=== PATIENT | female | born 1935 | race Caucasian/White ===

== ENCOUNTER 2021-07-12 13:42 | Inpatient (IN) | payer OTHER ==
[~2021-07-12] VITALS: Ht 160 cm; Wt 78.9 kg
--- NOTE | 2021-07-12 13:47 | NUR ---
SON CALLED ALONA PERRY [phone] HX: WENT VP FOR TIA FIRST THEN 3 DAYS LATER CVA SLURRING SPEECH 3 WEEKS AGO. HTN WITH MEDS PCP CHANGED
--- NOTE | 2021-07-12 13:50 | NUR ---
BIBRA 39 FRM ASSISTED LIVING C/O WITNESSED SYNCOPE x 3MIN, NO HEAD TRAUMA. PATIENT IS ALERT, ORIENTED X3. PLACED COMFORTABLY IN BED. VITALS CHECKED.
--- NOTE | 2021-07-12 13:50 | NUR ---
PER EMT, PATIENT HAS PREVIOUS HISTORY OF STROKE FEW MONTHS AGO.
[2021-07-12] MEDS ORDERED: CHOL100043 PO (14:24)
[2021-07-12] MEDS ORDERED: VALS320T16 PO (14:24)
[2021-07-12] MEDS ORDERED: AMLO-213 PO (14:24)
[2021-07-12] MEDS ORDERED: IPRA42SP (14:24)
[2021-07-12] MEDS ORDERED: MAGN296S72 PO (14:24)
[2021-07-12] MEDS ORDERED: HYDR25TA4 PO (14:24)
[2021-07-12] MEDS ORDERED: ASPI-1169 PO (14:24)
[2021-07-12] MEDS ORDERED: CLOP75TA15 PO (14:24)
[2021-07-12] MEDS ORDERED: ATOR40TA PO (14:24)
[2021-07-12 14:42] LABS: BASOPHILS % (AUTO) 0.4 % (0.0-2.0); EOSINOPHILS % (AUTO) 0.8 % (0.0-6.0); HEMATOCRIT 42 % (33-45); HEMOGLOBIN 13.6 g/dL (11.5-14.8); LYMPHOCYTES # (AUTO) 0.6 K/uL (0.8-4.8); LYMPHOCYTES % (AUTO) 4.8 % (20.0-44.0); MEAN CORPUSCULAR HGB CONC 33 g/dl (31.0-36.0); MEAN CORPUSCULAR VOLUME 91 fL (82-100); MONOCYTES # (AUTO) 0.6 K/uL (0.1-1.30); MONOCYTES % (AUTO) 4.8 % (2.0-12.0); NEUTROPHILS # (AUTO) 10.5 K/uL (1.8-8.9); NEUTROPHILS % (AUTO) 89.2 % (43.0-81.0); PLATELET COUNT (AUTO) 271 K/uL (150-450); RED BLOOD CELL COUNT(AUTO) 4.63 MIL/uL (4.0-5.2); WHITE BLOOD COUNT (AUTO) 11.7 K/uL (4.3-11.0)
--- NOTE | 2021-07-12 14:42 | NUR ---
MOVE SHEET SUBMITTED AND CALLED FOR TELE BED.
--- NOTE | 2021-07-12 14:57 | NUR ---
PATIENT BROUGHT TO RAD DEPT FOR CT SCAN
[2021-07-12 15:00] LABS: CALCIUM, SERUM 9.6 mg/dL (8.5-10.1); CARBON DIOXIDE 24 mmol/L (21-32); CHLORIDE 102 mmol/L (98-107); CREATININE 1.8 mg/dL (0.6-1.3); GLUCOSE 144 mg/dL (74-106); POTASSIUM 3.8 mmol/L (3.5-5.1); SODIUM SERUM 140 mmol/L (136-145); UREA NITROGEN, BLOOD 25 mg/dL (7-18)
[2021-07-12 15:13] LABS: ALANINE AMINOTRANSFERASE 23 U/L (12-78); ALBUMIN 3.1 g/dL (3.4-5.0); ALKALINE PHOSPHATASE 82 U/L (46-116); ASPARTATE AMINOTRANSFERASE 22 U/L (15-37); BILIRUBIN,DIRECT 0.2 mg/dL (0.0-0.2); BILIRUBIN,TOTAL 0.6 mg/dL (0.2-1.0); TOTAL PROTEIN, SERUM 7.9 g/dL (6.4-8.2)
--- NOTE | 2021-07-12 15:13 | NUR ---
COVID ANTIGEN SWAB DONE AND SENT TO LAB
[2021-07-12] MEDS ORDERED: MAGNESIUM CITRATE 296 ML BOTTLE PO PRN (16:00)
[2021-07-12] MEDS ORDERED: IV NS 0.9% 1,000 ML IV ONE (16:00)
[2021-07-12] MEDS ORDERED: ASPIRIN 81 MG TAB.CHEW PO ONE (16:30)
[2021-07-12] MEDS ORDERED: IV NS 0.9% 1,000 ML BAG IV ONE (16:30)
--- NOTE | 2021-07-12 16:37 | NUR ---
IV FLUIDS STARTED
[2021-07-12] MEDS ORDERED: ENOXAPARIN SODIUM 30 MG/0.3 ML DISP.SYRIN ONE (16:42)
[2021-07-12] MEDS ORDERED: ASPIRIN 81 MG TAB.CHEW ONE (16:42)
[2021-07-12] MEDS: ENOXAPARIN SODIUM 30 MG/0.3 ML DISP.SYRIN SQ SCH (16:51)
[2021-07-12] MEDS: BLOOD SUGAR DIAGNOSTIC 1 EACH STRIP IN SCH ×3 (17:46→22:25)
--- NOTE | 2021-07-12 18:10 | NUR ---
URINE SPECIMEN SENT TO LAB
--- NOTE | 2021-07-12 18:15 | NUR ---
2DECHO AT BEDSIDE
--- NOTE | 2021-07-12 18:51 | NUR ---
GOT BED 323-2 > CHANGE OF SHIFT.
[2021-07-12 19:11] LABS: BILIRUBIN,URINE SMALL (NEGATIVE); COLOR,URINE YELLOW (YELLOW); LEUKOCYTE ESTERASE ,URINE LARGE (NEGATIVE); NITRITE, URINE NEGATIVE (NEGATIVE); PROTEIN,URINE 100 mg/dl (NEGATIVE); UGLUCOSE NEGATIVE (NEGATIVE)
[2021-07-12 19:40] LABS: BACTERIA,URINE 3+ /HPF (None Seen); RBC,URINE 21-50 /HPF (0-2); WBC,URINE 51-80 /HPF (0-3)
[2021-07-12 19:41] LABS: SQUAMOUS EPITHELIAL CELL,UR 0-2 /HPF (None Seen)
--- NOTE | 2021-07-12 20:38 | NUR ---
REPORT GIVEN TO KRISTINA YOST
--- NOTE | 2021-07-12 21:30 | NUR ---
TRANSFERRED PATIENT TO ROOM VIA STRETCHER.
[2021-07-12 21:45] VITALS: BP 154/74
--- NOTE | 2021-07-12 22:00 | NUR ---
TRACK SUPERINTENDENTMANAGER FIELD NOTE PATIENT BROUGHT IN VIA STRETCHER, ALERT/ORIENTED X 2, CONFUSED, ORIENTED PATIENT TO HOSPITAL NAME AND DATE/TIME. PATIENT STABLE ON RA, NO S/S OF DISTRESS OR SOB NOTED, BREATHING EVEN AND UNLABORED. PER SON ALONA, PATIENT IS FULLY VACCINATED FOR COVID INCLUDING BOOSTER BUT UNSURE OF THE GREIGE GOODS INSPECTOR OR DATES RECEIVED. PATIENT ON EXTERNAL SPORTS MEDICINE TRAINER READING SINUS RHYTHM, HR: 74. LEFT AC #20G IV ACCESS INTACT AND FLUSHING WELL. PER PATIENT SHE DOES NOT HAVE DENTURES OR PACEMAKER. PER PATIENT SHE IS NORMALLY AMBULATORY, DOESN'T USE WALKER OR WHEELCHAIR. PATIENT BELONGINGS CHARTED AND BELONGING LIST PLACED IN CHART. PATIENT SKIN INTACT, HAS SCATTERED BRUISES ON BODY. SAFETY MEASURES IN PLACE: CALL LIGHT WITHIN REACH, SIDE RAILS UP X 3, BED LOCKED IN LOWEST POSITION, HOB ELEVATED, BED ALARM ON. WILL CONTINUE TO MONITOR PATIENT
--- NOTE | 2021-07-13 00:02 | NUR ---
INSURANCE VERIFY REP NOTE 2 DIFFERENT ACCU CHECK ORDERS. MIDNIGHT Q6H ACCU CHECK NOT TAKEN BECAUSE PARAMETERS STATE IF NPO, PATIENT IS NOT NPO. BLOOD SUGAR TAKEN AT 2200 WAS 101
--- NOTE | 2021-07-13 00:08 | NUR ---
LOAN SUPERVISOR NOTE ADMITTING DIAGNOSIS CLARIFIED WITH DR. JULIANNA RODRIGUEZ. ORDER TO ADMIT TO TELE, DIAGNOSIS SYNCOPE. ORDER CARRIED OUT
[2021-07-13 00:33] VITALS: BP 128/54
[2021-07-13 04:38] VITALS: BP 119/70
[2021-07-13] MEDS: BLOOD SUGAR DIAGNOSTIC 1 EACH STRIP IN SCH ×8 (05:19→22:06)
--- NOTE | 2021-07-13 07:14 | NUR ---
LOOPER FIXER CLOSING NOTE PATIENT SLEEPING IN BED, ALERT/ORIENTED X 2, PT CONFUSED AT TIMES. PT STABLE ON RA, NO S/S OF DISTRESS OR SOB NOTED, BREATHING EVEN AND UNLABORED. PATIENT ON EXTERNAL PIECE GOODS PACKER READING SINUS RHYTHM, HR: 63. NO SIGNIFICANT CHANGES THROUGHOUT SHIFT, PATIENT SLEPT WELL THROUGHOUT THE NIGHT. LEFT AC #20G IV ACCESS INTACT AND SALINE LOCKED. SAFETY MEASURES IN PLACE: CALL LIGHT WITHIN REACH, SIDE RAILS UP X 3, BED LOCKED IN LOWEST POSITION, HOB ELEVATED, BED ALARM ON. WILL ENDORSE TO DAY SHIFT NURSE FOR CONTINUITY OF CARE
--- NOTE | 2021-07-13 07:56 | NUR ---
BALANCE CLERK OPENING NOTE PATIENT SLEEPING IN BED, AWAKEN EASILY, ALERT/ORIENTED X 2. PT STABLE ON RA, NO S/SX OF DISTRESS OR SOB NOTED, BREATHING EVEN AND UNLABORED. PATIENT ON EXTERNAL CHANGE ANALYST READING SINUS RHYTHM, HR: 61. IV ACCESS ON LAC #20G PRESENT AND INTACT; SL. SAFETY PRECAUTIONS IN PLACE: CALL LIGHT WITHIN REACH, SIDE RAILS UP X 3, BED LOCKED IN LOWEST POSITION, HOB ELEVATED, BED ALARM ON. WILL CONTINUE TO MONITOR PATIENT.
[2021-07-13 08:00] VITALS: BP 129/60
[2021-07-13] MEDS ORDERED: AMLODIPINE BESYLATE 10 MG TABLET PO SCH (09:00)
[2021-07-13] MEDS: ASPIRIN 81 MG TAB.CHEW PO SCH (09:05)
[2021-07-13] MEDS: ATORVASTATIN 40 MG TABLET PO SCH (09:05)
[2021-07-13] MEDS: CLOPIDOGREL BISULFATE 75 MG TABLET PO SCH (09:05)
[2021-07-13] MEDS: CEFTRIAXONE 1 G in IV D5W 50 ML IV SCH (09:28)
[2021-07-13] MEDS ORDERED: IV NS 0.9% 1,000 ML IV PRN (10:30)
[2021-07-13 12:00] VITALS: BP 139/68
[2021-07-13 16:00] VITALS: BP 136/62
[2021-07-13] MEDS: ENOXAPARIN SODIUM 30 MG/0.3 ML DISP.SYRIN SQ SCH (17:13)
--- NOTE | 2021-07-13 18:51 | NUR ---
WAREHOUSE TECHNICIAN CLOSING NOTES PATIENT RESTING IN BED, ALERT/ORIENTED X 2. PT STABLE ON RA, NO S/SX OF DISTRESS OR SOB NOTED, BREATHING EVEN AND UNLABORED. PATIENT ON EXTERNAL ALLERGIST/IMMUNOLOGIST PHYSICIAN READING SINUS RHYTHM. IV ACCESS ON RFA AND BALBINA MIDLINE G # 20 PRESENT AND INTACT; SL. ALL NEEDS ATTENDED DURING THE DAY. SAFETY PRECAUTIONS IN PLACE: CALL LIGHT WITHIN REACH, SIDE RAILS UP X 3, BED LOCKED IN LOWEST POSITION, HOB ELEVATED, BED ALARM ON. ENDORSE TO NAIL MACHINE OPERATOR NURSE FOR CHAR.
--- NOTE | 2021-07-13 19:30 | NUR ---
SEMICONDUCTOR PROCESSING TECHNICIAN OPENING NOTE RECEIVED PATIENT IN BED, A/OX2. PATIENT NOT TALKING, ONLY NODS. PERRLA NOTED. NO S/S OF APPARENT DISTRESS. DENIES PAIN. TELE MONITOR READING SR 69 AT THIS TIME. Erika. MIRIAM #20 G RUNNING NS @100CC/HR. SAFETY IN PLACE. WILL CONTINUE WITH PATIENT'S PLAN OF CARE AND MONITOR.
[2021-07-13 20:00] VITALS: BP 133/64
--- NOTE | 2021-07-13 21:00 | NUR ---
BARMAN NOTE SPOKE WITH ALONA (SON) ASKING FOR UPDATES. PER ALONA HE WANTS TO SPEAK TO NEUROLOGIST. ALONA'S NUMBER . WILL RELAY MESSAGE TO AM SHIFT AND CHARGE NURSE.
--- NOTE | 2021-07-14 04:00 | NUR ---
BRIAR CUTTER NOTE-- ORTHOSTATIC BP LYING DOWN - 168/71, HR-73 SITTING DOWN- 162/65, HR-70 STANDING UP- 173/81, HR-58 PATIENT DENIES ANY DIZZINESS OR SYNCOPE. WILL RECHECK BP AFTER 30 MINUTES.
[2021-07-14 04:30] VITALS: BP 151/76
--- NOTE | 2021-07-14 04:32 | NUR ---
JAVA JSF DEVELOPER NOTE BP 151/76, HR-76. WILL CONTINUE TO MONITOR PATIENT.
[2021-07-14 06:27] LABS: BASOPHILS # (AUTO) 0.1 K/uL (0.0-0.2); BASOPHILS % (AUTO) 1.2 % (0.0-2.0); EOSINOPHILS % (AUTO) 7.3 % (0.0-6.0); HEMATOCRIT 38 % (33-45); HEMOGLOBIN 12.3 g/dL (11.5-14.8); LYMPHOCYTES # (AUTO) 0.7 K/uL (0.8-4.8); LYMPHOCYTES % (AUTO) 13.3 % (20.0-44.0); MEAN CORPUSCULAR HGB CONC 33 g/dl (31.0-36.0); MEAN CORPUSCULAR VOLUME 91 fL (82-100); MONOCYTES # (AUTO) 0.5 K/uL (0.1-1.30); MONOCYTES % (AUTO) 9.6 % (2.0-12.0); NEUTROPHILS # (AUTO) 3.7 K/uL (1.8-8.9); NEUTROPHILS % (AUTO) 68.6 % (43.0-81.0); PLATELET COUNT (AUTO) 205 K/uL (150-450); RED BLOOD CELL COUNT(AUTO) 4.16 MIL/uL (4.0-5.2); WHITE BLOOD COUNT (AUTO) 5.4 K/uL (4.3-11.0)
[2021-07-14] MEDS: BLOOD SUGAR DIAGNOSTIC 1 EACH STRIP IN SCH ×4 (06:37→22:11)
--- NOTE | 2021-07-14 06:47 | NUR ---
MASS SPEC CLOSING NOTE PATIENT IN BED WITH EYES CLOSED, EASY TO AROUSE. A/OX2. NO S/S OF APPARENT DISTRESS IN ROOM AIR. DENIES ANY PAIN. TELE MONITOR READING SR THROUGHOUT SHIFT, 64 BPM. IV NS RUNNING AT 100ML/HR. ALL NEEDS ATTENED. ALL SCHEDULED MEDS ADMINISTERED. NIHSS SCORE=4 ON MY SHIFT. WILL ENDORSE TO MORNING SHIFT RN FOR CONTINUITY OF CARE.
[2021-07-14 07:10] LABS: ALBUMIN 2.5 g/dL (3.4-5.0); BILIRUBIN,TOTAL 0.3 mg/dL (0.2-1.0); CALCIUM, SERUM 8.7 mg/dL (8.5-10.1); CREATININE 1.1 mg/dL (0.6-1.3); PHOSPHORUS 3.4 mg/dL (2.5-4.9); POTASSIUM 3.7 mmol/L (3.5-5.1); TOTAL PROTEIN, SERUM 6.8 g/dL (6.4-8.2)
--- NOTE | 2021-07-14 07:31 | NUR ---
CHIEF OF STAFF DOCTOR OPENING NOTE PATIENT SLEEPING IN BED, AWAKEN EASILY, ALERT/ORIENTED X 2. PT STABLE ON RA, NO S/SX OF DISTRESS OR SOB NOTED, BREATHING EVEN AND UNLABORED. PATIENT ON EXTERNAL DIRECTOR INSURANCE READING SINUS RHYTHM, HR: 64. BALBINA MIDLINE PRESENT AND INTACT RUNNING NS @100 MLS/HR. SAFETY PRECAUTIONS IN PLACE: CALL LIGHT WITHIN REACH, SIDE RAILS UP X 3, BED LOCKED IN LOWEST POSITION, HOB ELEVATED, BED ALARM ON. WILL CONTINUE TO MONITOR PATIENT.
[2021-07-14 08:00] VITALS: BP 156/60
[2021-07-14] MEDS: CEFTRIAXONE 1 G in IV D5W 50 ML IV SCH (08:28)
[2021-07-14] MEDS: ASPIRIN 81 MG TAB.CHEW PO SCH (08:28)
[2021-07-14] MEDS: CLOPIDOGREL BISULFATE 75 MG TABLET PO SCH (08:28)
[2021-07-14] MEDS: ATORVASTATIN 40 MG TABLET PO SCH (08:28)
[2021-07-14] MEDS ORDERED: IOHEXOL-350 100 ML VIAL IV ONE (08:57)
[2021-07-14] MEDS ORDERED: IV NS 0.9% 250 ML IV ONE (08:58)
[2021-07-14 16:00] VITALS: BP 156/60
[2021-07-14] MEDS: ENOXAPARIN SODIUM 30 MG/0.3 ML DISP.SYRIN SQ SCH (16:08)
--- NOTE | 2021-07-14 19:00 | NUR ---
ACID PURIFICATION EQUIPMENT OPERATOR CLOSING NOTES PATIENT RESTING IN BED, AWAKEN EASILY, ALERT/ORIENTED X 2. PT STABLE ON RA, NO S/SX OF DISTRESS OR SOB NOTED, BREATHING EVEN AND UNLABORED DURING THE DAY. PATIENT ON EXTERNAL UNIT MANAGER RN READING SINUS RHYTHM. BALBINA MIDLINE PRESENT AND INTACT RUNNING NS @100 MLS/HR. ALL NEEDS ATTENDED DURING THE DAY. SAFETY PRECAUTIONS IN PLACE: CALL LIGHT WITHIN REACH, SIDE RAILS UP X 3, BED LOCKED IN LOWEST POSITION, HOB ELEVATED, BED ALARM ON. WILL ENDORSE TO MECHANICAL CAD DRAFTER NURSE FOR CHAR.
--- NOTE | 2021-07-14 19:33 | NUR ---
BOX PRINTING MACHINE OPERATOR OPENING NOTE RECEIVED PATIENT IN BED, A/OX2. NO S/S OF APPARENT DISTRESS IN ROOM AIR. DENIES PAIN. TELE MONITOR READING SR 75. NO FLUIDS RUNNING AT THIS TIME. SAFETY IN PLACE. WILL CONTINUE TO MONITOR.
[2021-07-14 20:00] VITALS: BP 133/66
[2021-07-15] VITALS: BP 149/58
[2021-07-15 01:27] VITALS: BP 149/58
[2021-07-15 04:00] VITALS: BP 158/54
[2021-07-15] MEDS: BLOOD SUGAR DIAGNOSTIC 1 EACH STRIP IN SCH (06:32)
--- NOTE | 2021-07-15 06:45 | NUR ---
COGNOS REPORT DEVELOPER CLOSING NOTE PATIENT IN BED WITH EYES CLOSED, EASY TO AROUSE. A/OX2. NO S/S OF APPARENT DISTRESS IN ROOM AIR. DENIES ANY PAIN. TELE MONITOR READING SR THROUGHOUT SHIFT. NO IV FLUIDS RUNNING T THIS TIME. ALL NEEDS ATTENDED. ALL SCHEDULED MEDS ADMINISTERED. NIHSS SCORE=3 ON MY SHIFT. WILL ENDORSE TO MORNING SHIFT RN FOR CONTINUITY OF CARE.
--- NOTE | 2021-07-15 08:04 | NUR ---
RN OPENING NOTE PATIENT RECEIVED IN BED, ABLE TO RESPONDS ALL STIMULI. IN NO ACUTE DISTRESS NOTED. RESPIRATORY EVEN AND UNLABORED ON ROOM AIR. SKIN IS WARM TO TOUCH, KEEP CLEAN/DRY, INTACT IV SITE. KEPT ELEVATED HOB FOR ENSURE AIRWAY AND ASPIRATION PRECAUTION, ALSO LOWEST POSITION OF THE BED, S/R UP X 2, ALL SAFETY PRECAUTION APPLIED. CALL LIGHT WITHIN REACH, WILL CONTINUE TO MONITOR.
[2021-07-15] MEDS: CEFTRIAXONE 1 G in IV D5W 50 ML IV SCH (08:14)
[2021-07-15] MEDS: ATORVASTATIN 40 MG TABLET PO SCH (08:14)
[2021-07-15] MEDS: CLOPIDOGREL BISULFATE 75 MG TABLET PO SCH (08:14)
[2021-07-15] MEDS: ASPIRIN 81 MG TAB.CHEW PO SCH (08:15)
[2021-07-15] MEDS ORDERED: CEPH250S PO (10:50)
--- NOTE | 2021-07-15 11:30 | NUR ---
PATIENT DISCHARGE TO [facility], SON PICKED UP PATIENT WHO AWARE OF PATIENT DISCHARGE TO [facility]. GIVEN INFORMATION OF NEW MEDICATION, AND FOLLOW UP DR. BOLANOS/VASCULAR SURGEON, INCLUDED ALL IMAGINE CDs ALSO.
== END 2021-07-15 11:30 | DRG 64 ==
LOC: ER 13:50 → TRANSITION 16:27 → TELE 19:22
PROVIDERS: ADMIT Internal Medicine; ATTEND Internal Medicine
PROC: 05HC33Z Insertion of Infusion Device into Left Basilic Vein, Percutaneous Approach (ICD-10-PCS; principal; 2021-07-13)
DX: I63.9 Cerebral infarction, unspecified (principal); G93.41 Metabolic encephalopathy; E43 Unspecified severe protein-calorie malnutrition; N17.0 Acute kidney failure with tubular necrosis; N39.0 Urinary tract infection, site not specified; I10 Essential (primary) hypertension; G93.89 Other specified disorders of brain; Z86.73 Personal history of transient ischemic attack (TIA), and cerebral infarction without residual deficits; F03.90 Unspecified dementia, unspecified severity, without behavioral disturbance, psychotic disturbance, mood disturbance, and anxiety; J44.9 Chronic obstructive pulmonary disease, unspecified; E87.5 Hyperkalemia; Z88.5 Allergy status to narcotic agent; Z79.51 Long term (current) use of inhaled steroids; Z79.82 Long term (current) use of aspirin; Z79.899 Other long term (current) drug therapy; E88.09 Other disorders of plasma-protein metabolism, not elsewhere classified; I67.2 Cerebral atherosclerosis; I73.9 Peripheral vascular disease, unspecified; N28.89 Other specified disorders of kidney and ureter; B96.20 Unspecified Escherichia coli [E. coli] as the cause of diseases classified elsewhere; E86.0 Dehydration
CPT/HCPCS: 36410; 36415; 70450-TC; 70496-TC; 70498-TC; 70551-TC; 71045-TC; 76770-TC; 80048-TC; 80053-TC; 80076-TC; 81001; 82962-TC; 83605-TC; 83735-TC; 84100-TC; 84484-TC; 85025-TC; 87040-TC; 87081-TC; 87086-TC; 87186-TC; 92526; 92611-TC; 93307-TC; 93880-TC; 97112-TC; 97116-TC; 97530-TC; C9803; G0378; J0696; J1650; J7030; J7040; J7050; J7060; Q9967

== ENCOUNTER 2022-08-04 09:25 | Inpatient (IN) | payer OTHER ==
[~2022-08-04] VITALS: Ht 167.6 cm; Wt 81.6 kg
[~2022-08-04 09:25] MED LIST: AMLO-213 PO; ASPI-1169 PO; ATOR40TA PO; CEPH250S PO; CHOL100043 PO; CLOP75TA15 PO; HYDR25TA4 PO; IPRA42SP; MAGN296S72 PO; VALS320T16 PO
--- NOTE | 2022-08-04 09:50 | NUR ---
Patient AOx4 able to express her concerns. Patient states no pain. Discussed plan of car, pt verbalized agreement. All safety precautions taken.
--- NOTE | 2022-08-04 09:55 | NUR ---
MOVE SHEET SUBMITTED.
[2022-08-04] MEDS ORDERED: LEVETIRACETAM (500MG) 500 MG in IV NS 0.9% 100 ML IV ONE (10:00)
--- NOTE | 2022-08-04 10:00 | NUR ---
Blood collected, sent to lab
[2022-08-04 10:34] LABS: CARBON DIOXIDE 27 mmol/L (21-32); CHLORIDE 105 mmol/L (98-107); CREATININE 1.6 mg/dL (0.6-1.3); GLUCOSE 162 mg/dL (74-106); POTASSIUM 3.9 mmol/L (3.5-5.1); SODIUM SERUM 141 mmol/L (136-145); UREA NITROGEN, BLOOD 20 mg/dL (7-18)
[2022-08-04 10:39] LABS: ALANINE AMINOTRANSFERASE 31 U/L (12-78); ALBUMIN 2.9 g/dL (3.4-5.0); ALKALINE PHOSPHATASE 89 U/L (46-116); ASPARTATE AMINOTRANSFERASE 22 U/L (15-37); BILIRUBIN,TOTAL 0.4 mg/dL (0.2-1.0); TOTAL PROTEIN, SERUM 7.4 g/dL (6.4-8.2)
[2022-08-04 10:48] LABS: ALCOHOL, BLOOD < 3 mg/dL (0-0)
[2022-08-04 10:55] LABS: BASOPHILS # (AUTO) 0.1 K/uL (0.0-0.2); BASOPHILS % (AUTO) 0.7 % (0.0-2.0); EOSINOPHILS % (AUTO) 4.4 % (0.0-6.0); HEMATOCRIT 39 % (33-45); LYMPHOCYTES # (AUTO) 0.4 K/uL (0.8-4.8); LYMPHOCYTES % (AUTO) 4.7 % (20.0-44.0); MEAN CORPUSCULAR HGB CONC 33 g/dl (31.0-36.0); MEAN CORPUSCULAR VOLUME 88 fL (82-100); MONOCYTES # (AUTO) 0.5 K/uL (0.1-1.30); MONOCYTES % (AUTO) 6.6 % (2.0-12.0); NEUTROPHILS # (AUTO) 6.3 K/uL (1.8-8.9); NEUTROPHILS % (AUTO) 83.6 % (43.0-81.0); PLATELET COUNT (AUTO) 221 K/uL (150-450); RED BLOOD CELL COUNT(AUTO) 4.42 MIL/uL (4.0-5.2); WHITE BLOOD COUNT (AUTO) 7.5 K/uL (4.3-11.0)
--- NOTE | 2022-08-04 10:56 | NUR ---
ALBARO CM SCAN [phone]
--- NOTE | 2022-08-04 11:00 | NUR ---
DR. BROWN OR DR. FRANCOIS WILL CALL FOR PEER TO PEER.
[2022-08-04 11:45] LABS: BILIRUBIN,URINE NEGATIVE (NEGATIVE); COLOR,URINE DARK YELLOW (YELLOW); LEUKOCYTE ESTERASE ,URINE 1+ (NEGATIVE); NITRITE, URINE NEGATIVE (NEGATIVE); PROTEIN,URINE 3+ mg/dl (NEGATIVE); UGLUCOSE NEGATIVE (NEGATIVE); UROBILINOGEN,URINE 0.2 EU/dL (0.2)
[2022-08-04 11:57] LABS: BACTERIA,URINE Few /HPF (None Seen); RBC,URINE 0-2 /HPF (0-2); SQUAMOUS EPITHELIAL CELL,UR Rare /HPF (None Seen)
[2022-08-04] MEDS ORDERED: CEFTRIAXONE 1GM BAG (ER ONLY) 50 ML IV ONE (12:26)
[2022-08-04] MEDS ORDERED: CEFTRIAXONE 1GM BAG (ER ONLY) 1 GM/50 ML PIGGYBACK IV ONE (12:30)
--- NOTE | 2022-08-04 12:34 | NUR ---
DR. BROWN SPEAKING WITH DR. MCMULLEN.
--- NOTE | 2022-08-04 13:04 | NUR ---
MRSA Swab collected, sent to lab.
--- NOTE | 2022-08-04 13:05 | NUR ---
COVID Swab collected, sent to lab.
--- NOTE | 2022-08-04 14:09 | NUR ---
GOT BED 113-2 ADMITTING INFORMED.
[2022-08-04] MEDS ORDERED: ONDANSETRON HCL/PF 4 MG/2 ML VIAL IVP PRN (14:30)
[2022-08-04] MEDS ORDERED: ACETAMINOPHEN 325 MG TABLET PO PRN (14:30)
--- NOTE | 2022-08-04 14:45 | NUR ---
report given to olga lidia for continuation of care
--- NOTE | 2022-08-04 15:03 | NUR ---
COMMODITY BUYER NOTE PT ALERT AND ORIENTED X3. VERBALLY RESPONSIVE. SOME PERIODS OF CONFUSION. ON TELE MONITOR. ON 2-4 l NASAL CANNULA TOLERATING AT 97%. PT NOTED TO HAVE REDNESS ON UPPER CHEST AND WEARING A LIFE ALERT BRACELET. PT HAS LEFT AC IV INTACT, PATENT AND FLUSHING WELL. ALL SAFETY MEASURES IN PLACE.CALL LIGHT WITHIN REACH. BED LOCKED AT LWOEST POSITION. SIDE RAILS UP X2. BED ALARM ON
[2022-08-04] MEDS: CHOLECALCIFEROL 1,000 UNIT TABLET (VIT D3) PO SCH (16:54)
[2022-08-04] MEDS: ASPIRIN 81 MG TAB.CHEW PO SCH (16:55)
[2022-08-04] MEDS: AMLODIPINE BESYLATE 10 MG TABLET PO SCH (16:57)
[2022-08-04] MEDS: ATORVASTATIN 40 MG TABLET PO SCH (16:57)
[2022-08-04] MEDS: CLOPIDOGREL BISULFATE 75 MG TABLET PO SCH (16:58)
[2022-08-04 17:00] VITALS: BP 160/81
[2022-08-04] MEDS: ENOXAPARIN SODIUM 30 MG/0.3 ML DISP.SYRIN SQ SCH (17:00)
--- NOTE | 2022-08-04 17:30 | NUR ---
RN NOTE NOTIFIED GUSTAVO BRYANT IF LOVENOX AND PLAVIX CAN BE TAKEN TOGETHER. INFORMED NO RISKS OF BLEEDING AND CURRENT HGB,HCT AND PLT VALUES. GUSTAVO BRYANT SAID OKAY TO GIVE
[2022-08-04] MEDS: IV NS 0.9% 1,000 ML IV PRN (17:36)
--- NOTE | 2022-08-04 19:23 | NUR ---
RN CLOSING NOTE PT ALERT AND ORIENTED X3. VERBALLY RESPONSIVE. SOME PERIODS OF CONFUSION. ON TELE MONITOR AT SR 70. ON 3-4 l NASAL CANNULA TOLERATING AT 97%. PT NOTED TO HAVE REDNESS ON UPPER CHEST AND WEARING A LIFE ALERT BRACELET AND DISCOLORATION THROUGHOUT BODY. PT HAS LEFT AC IV INTACT, PATENT AND FLUSHING WELL. WOUND CARE PICTURES DONE AND PLACED IN CHART. ALL SAFETY MEASURES IN PLACE.CALL LIGHT WITHIN REACH. BED LOCKED AT LWOEST POSITION. SIDE RAILS UP X2. BED ALARM ON.ENDORSED TO MIXER CRANE OPERATOR RN FOR CONTUITY OF CARE
[2022-08-04 20:00] VITALS: BP 147/53
--- NOTE | 2022-08-04 20:00 | NUR ---
SUPERVISOR CONDITIONING YARD NOTES RECEIVED PTS IN BED ALERT AND ORIENTED X3. VERBALLY RESPONSIVE. SOME PERIODS OF CONFUSION. ON TELE MONITOR. ON 2L OF O2 VIA NASAL CANNULA TOLERATING AT 96%. NO DISTRESS NO SOB NOTED NO C/O OF PAIN NO FACIAL GRIMACING NOTED V/S STABLE AFEBRILE ,SON AT BEDSIDE UPDATED WITH PTS CONDITION , PTS WEARING A LIFE ALERT BRACELET. LEFT AC G# 20 IV INTACT, PATENT AND FLUSHING WELL. ALL SAFETY MEASURES IN PLACE.CALL LIGHT WITHIN REACH. BED LOCKED AT LOWEST POSITION. SIDE RAILS UP X2. BED ALARM ON WILL CONTINUE TO MONITOR PTS.
--- NOTE | 2022-08-04 21:00 | NUR ---
BUSINESS EDUCATION TEACHER NOTES PTS ON IVF OF NS AT 75CC/HR ON PROGRESS WELL TOLERATED BY PTS.
[2022-08-05] VITALS: BP 139/83
[2022-08-05 04:00] VITALS: BP 129/89
--- NOTE | 2022-08-05 06:03 | NUR ---
ADMINISTRATIVE LAW JUDGE CLOSING NOTES PTS REMAINS IN BED AWAKE , O2 TITRATED TO 2 LITERS SATING 96% NO SOB NO DISTRESS NOTED , REMAIN ON IVF AT 75CC/HR , WILL ENDORSE TO RN DAY SHIFT FOR CONTINUITY OF CARE.
[2022-08-05 06:24] LABS: BASOPHILS % (AUTO) 0.4 % (0.0-2.0); EOSINOPHILS % (AUTO) 0.5 % (0.0-6.0); HEMATOCRIT 38 % (33-45); HEMOGLOBIN 12.5 g/dL (11.5-14.8); LYMPHOCYTES % (AUTO) 17.8 % (20.0-44.0); MEAN CORPUSCULAR HGB CONC 33 g/dl (31.0-36.0); MEAN CORPUSCULAR VOLUME 89 fL (82-100); MONOCYTES # (AUTO) 0.5 K/uL (0.1-1.30); MONOCYTES % (AUTO) 9.4 % (2.0-12.0); NEUTROPHILS # (AUTO) 3.9 K/uL (1.8-8.9); NEUTROPHILS % (AUTO) 71.9 % (43.0-81.0); PLATELET COUNT (AUTO) 209 K/uL (150-450); RED BLOOD CELL COUNT(AUTO) 4.29 MIL/uL (4.0-5.2); WHITE BLOOD COUNT (AUTO) 5.4 K/uL (4.3-11.0)
[2022-08-05 07:00] LABS: CALCIUM, SERUM 8.5 mg/dL (8.5-10.1); CREATININE 1.3 mg/dL (0.6-1.3); MAGNESIUM 2.3 mg/dL (1.8-2.4); PHOSPHORUS 4.3 mg/dL (2.5-4.9); POTASSIUM 3.5 mmol/L (3.5-5.1)
--- NOTE | 2022-08-05 07:00 | NUR ---
RN OPENING NOTE PATIENT ALERT, ORIENTED X3, VERBALLY RESPONSIVE, ON NS 2L BREATHING EVENLY, NO SOB OR DISCOMFORT NOTED, PATIENT NOTED TO HAVE A ESPINAL ON NECK, MD WILL BE NOTIFIED. IV SITE ON LAC MATHIEU 20 PATENT AND FLUSHING WELL, ON NS 75CC/HR. SAFETY MEASURES IMPLEMENTED, HEAD OF BED ELEVATED, , BED IN LOWEST AND LOCKED POSITION, SIDE RAILS X3, SEIZURE PRECAUTIONS IN PLACE. CALL LIGHT IN PLACE. WILL CONTINUE TO MONITOR.
[2022-08-05 08:00] VITALS: BP 155/68
--- NOTE | 2022-08-05 08:01 | NUR ---
WOUND CARE CONSULT: PT PRESENTS WITH FRAGILE SKIN, AREAS OF SKIN DISCOLORATION, SLIGHT REDNESS TO GLUTEAL CREASE AND SKIN CONDITION NOTED TO LEFT NECK/CHEST AREA, UNKNOWN ETIOLOGY. DISCUSSED SKIN PROTECTION WITH NURSING STAFF. DEFER TO PMD FOR SKIN CONDITION ON LEFT NECK/CHEST AREA. MD IN AGREEMENT WITH PLAN OF CARE.
[2022-08-05] MEDS ORDERED: Z GUARD REMEDY 4 OZ OINT TP PRN (08:30)
[2022-08-05] MEDS ORDERED: LEVETIRACETAM (500MG) 1,000 MG in IV NS 0.9% 100 ML IV SCH (08:30)
[2022-08-05] MEDS ORDERED: LEVETIRACETAM (500MG) 1,000 MG in IV NS 0.9% 100 ML IV ONE (09:00)
[2022-08-05] MEDS ORDERED: LEVETIRACETAM (250 MG) 250 MG TABLET PO SCH (09:00)
[2022-08-05] MEDS: ENOXAPARIN SODIUM 30 MG/0.3 ML DISP.SYRIN SQ SCH (09:55)
[2022-08-05] MEDS: ASPIRIN 81 MG TAB.CHEW PO SCH (09:56)
[2022-08-05] MEDS: ATORVASTATIN 40 MG TABLET PO SCH (09:56)
[2022-08-05] MEDS: AMLODIPINE BESYLATE 10 MG TABLET PO SCH (09:56)
[2022-08-05] MEDS: CLOPIDOGREL BISULFATE 75 MG TABLET PO SCH (09:56)
[2022-08-05] MEDS: CHOLECALCIFEROL 1,000 UNIT TABLET (VIT D3) PO SCH (09:56)
[2022-08-05] MEDS: VALSARTAN 80 MG TABLET PO SCH (09:57)
[2022-08-05] MEDS: Z GUARD REMEDY 4 OZ OINT TP SCH (09:58)
--- NOTE | 2022-08-05 11:10 | NUR ---
RN NOTE PATIENT NOTED WITH WOUND ON NECK, WITH DRAINAGE ALONG WITH MILD BLEEDING WHEN MOVED. DR BRYANT PERCUSSION TEACHER NOTIFIED AND RECEIVED ORDERS TO JUST CLEAN THE AREA.
--- NOTE | 2022-08-05 11:26 | NUR ---
RN NOTE PATIENT WAS SEEN BU PT. PER PT, PATIENT WAS ABLE TO WALK 5 FEET.
[2022-08-05] MEDS: CEFTRIAXONE 1 G in IV D5W 50 ML IV SCH (11:58)
[2022-08-05] MEDS: LEVETIRACETAM (250 MG) 250 MG TABLET PO SCH ×2 (11:58→20:56)
[2022-08-05 12:00] VITALS: BP 135/51
[2022-08-05] MEDS: CLOTRIMAZOLE 1% 15 GM TUBE TP SCH ×2 (13:00→17:00)
--- NOTE | 2022-08-05 13:54 | NUR ---
RN NOTE CLOTRIMAZOLE 1% NOT IN MEDICATION ROOM. PHARMACY MADE AWARE
--- NOTE | 2022-08-05 13:57 | NUR ---
RN NOTE RECEIVED CALL FROM PHARMACY FOR CLOTRIMAZOLE, PER PHARMACY, THEY NO LONGER HAVE MEDICATION, IT NEEDS TO BE ORDER AND IT WILL BE ADMINISTERED TOMORROW 08/06/22. CHARGE NURSE MADE AWARE
[2022-08-05 16:00] VITALS: BP 151/57
--- NOTE | 2022-08-05 19:56 | NUR ---
RN CLOSING NOTE NOTE PATIENT ALERT, ORIENTED X3, VERBALLY RESPONSIVE, ON NS 2L BREATHING EVENLY, NO SOB OR DISCOMFORT NOTED, PATIENT NOTED TO HAVE A ESPINAL ON NECK, ARE CLEANSED AND PROVIDED CARE PER MD INSTRUCTIONS, PATIENT WAS REPOSITIONED EVERY 2 HOURS, IV SITE ON LAC MATHIEU 20 PATENT AND FLUSHING WELL, ON NS 75CC/HR. SAFETY MEASURES IMPLEMENTED, HEAD OF BED ELEVATED, , BED IN LOWEST AND LOCKED POSITION, SIDE RAILS X3, SEIZURE PRECAUTIONS IN PLACE. CALL LIGHT IN PLACE. WILL GIVE REPORT TO HOUSE STEWARD/STEWARDESS NURSE FOR CONTINUE OF CARE
[2022-08-05 20:00] VITALS: BP 151/77
--- NOTE | 2022-08-05 20:00 | NUR ---
WELL DRILL OPERATOR ROTARY DRILL NOTES RECEIVED PTS IN BED ALERT AND ORIENTED X3. VERBALLY RESPONSIVE. SOME PERIODS OF CONFUSION. ON TELE MONITOR. ON 2L OF O2 VIA NASAL CANNULA TOLERATING AT 96%. NO DISTRESS NO SOB NOTED NO C/O OF PAIN NO FACIAL GRIMACING NOTED V/S STABLE AFEBRILE ,SON AT BEDSIDE UPDATED WITH PTS CONDITION , DUE MEDS GIVEN ORDERED NO ASE NOTED. LEFT AC G# 20 IV INTACT, PATENT AND FLUSHING WELL.WITH IVF NS AT 75CC/HR INFUSING WELL . PTS ON PUREWICK . ALL SAFETY MEASURES IN PLACE.CALL LIGHT WITHIN REACH. BED LOCKED AT LOWEST POSITION. SIDE RAILS UP X2. BED ALARM ON WILL CONTINUE TO MONITOR PTS.
[2022-08-05] MEDS: IV NS 0.9% 1,000 ML IV PRN (22:04)
[2022-08-06] VITALS: BP 159/86
[2022-08-06 04:00] VITALS: BP 163/74
--- NOTE | 2022-08-06 06:12 | NUR ---
PHARMACOLOGIST CLOSING NOTES PTS REMAINS IN BED AWAKE , O2 2 LITERS SATING 96% NO SOB NO DISTRESS NOTED , REMAIN ON IVF AT 75CC/HR , WILL ENDORSE TO RN DAY SHIFT FOR CONTINUITY OF CARE. d/c planning taday
--- NOTE | 2022-08-06 06:54 | NUR ---
TRACK SURFACING MACHINE OPERATOR NOTE RECEIVED ORDER FROM DR MAYEN PLC CONTROLS ENGINEER WITH ORDER OF HYDRALAZINE 25 MG PO Q6HR PRN FOR SBP > 160. ORDER NOTED AND CARRIED OUT, ENDORSED TO THE NEXT SHIFT
[2022-08-06] MEDS ORDERED: hydrALAZINE HCL 25 MG TABLET PO PRN (07:00)
--- NOTE | 2022-08-06 07:28 | NUR ---
RN OPENING NOTE PATIENT ALERT, ORIENTED X3, VERBALLY RESPONSIVE, ON NS 2L BREATHING EVENLY, NO SOB OR DISCOMFORT NOTED, REDNESS ON NECK, WILL FOLLOW DOCTORS ORDER FOR IT, IV SITE ON LAC MATHIEU 20 PATENT AND FLUSHING WELL, ON NS 75CC/HR, ON PUREWICK. SAFETY MEASURES IMPLEMENTED, HEAD OF BED ELEVATED, , BED IN LOWEST AND LOCKED POSITION, SIDE RAILS X3, SEIZURE PRECAUTIONS IN PLACE. CALL LIGHT IN PLACE. WILL CONTINUE TO MONITOR.
[2022-08-06 08:00] VITALS: BP 177/83
[2022-08-06] MEDS: ASPIRIN 81 MG TAB.CHEW PO SCH (09:04)
[2022-08-06] MEDS: VALSARTAN 80 MG TABLET PO SCH (09:04)
[2022-08-06] MEDS: CLOPIDOGREL BISULFATE 75 MG TABLET PO SCH (09:04)
[2022-08-06] MEDS: ATORVASTATIN 40 MG TABLET PO SCH (09:04)
[2022-08-06] MEDS: CHOLECALCIFEROL 1,000 UNIT TABLET (VIT D3) PO SCH (09:04)
[2022-08-06] MEDS: AMLODIPINE BESYLATE 10 MG TABLET PO SCH (09:04)
[2022-08-06] MEDS: ENOXAPARIN SODIUM 30 MG/0.3 ML DISP.SYRIN SQ SCH (09:06)
[2022-08-06] MEDS: LEVETIRACETAM (250 MG) 250 MG TABLET PO SCH (09:07)
--- NOTE | 2022-08-06 09:08 | NUR ---
RN NOTE OMNICELL WA OPENED TO GET LEVETIRACETAM, ONLY ONE PILL WAS TAKEN OUT OUT OF THE TWO. OMNICELL WAS REOPENED TO GET THE SECOND DOSE TO TOTAL CORRECT PRESCRIBED MEDICATION
[2022-08-06] MEDS: Z GUARD REMEDY 4 OZ OINT TP SCH (09:10)
--- NOTE | 2022-08-06 10:00 | NUR ---
RN NOTE CLOTRIMAZOLE NOT IN MEDICATION ROOM OR PATIENT BED SIDE. PHARMACY MADE AWARE. AWAITING MEDICATION.
[2022-08-06] MEDS ORDERED: CLOT15CR35 TP (11:12)
[2022-08-06] MEDS ORDERED: LEVE250T2 PO (11:12)
[2022-08-06] MEDS ORDERED: CEPH500C2 PO (11:12)
[2022-08-06 12:00] VITALS: BP 146/64
[2022-08-06] MEDS: CEFTRIAXONE 1 G in IV D5W 50 ML IV SCH (12:28)
--- NOTE | 2022-08-06 13:55 | NUR ---
RN NOTE PATIENT WAS DISCHARGE TO [facility] IN STABLE CONDITION, ALERT AND ORIENTED X 2-3 ON ROOM AIR O2 SATURATION WITHIN NORMAL LIMITS, NO SOB OR SIGNS OF DISTRESS NOTED. IV ACCESS REMOVED. VITALS SIGNS, NURSE ROUNDING, ALL INTERVENTIONS MET DURING PATIENTS HOSPITAL STAY. IV ACCESS REMOVED, DRESSING INTACT, PATIENT SIGNED ALL DISCHARGE PAPERS AND BELONGINGS, PATIENT LEFT IN STABLE CONDITION WITH EMT VIA AMBULANCE. ALL PATIENT'S MEDICATIONS, INTERVENTIONS WERE PERFORMED ORDERED. CHARGE NURSE AWARE.
[2022-08-06 16:00] VITALS: BP 146/64
== END 2022-08-06 16:23 | disposition home health service (06) | DRG 682 ==
LOC: ER 09:28 → TELE1 14:23
PROVIDERS: ADMIT Nurse Practitioner Acute Care; ATTEND Nurse Practitioner Acute Care
DX: N17.0 Acute kidney failure with tubular necrosis (principal); E43 Unspecified severe protein-calorie malnutrition; G93.41 Metabolic encephalopathy; N39.0 Urinary tract infection, site not specified; B49 Unspecified mycosis; R56.9 Unspecified convulsions; N18.9 Chronic kidney disease, unspecified; I12.9 Hypertensive chronic kidney disease with stage 1 through stage 4 chronic kidney disease, or unspecified chronic kidney disease; F03.90 Unspecified dementia, unspecified severity, without behavioral disturbance, psychotic disturbance, mood disturbance, and anxiety; J44.9 Chronic obstructive pulmonary disease, unspecified; E78.5 Hyperlipidemia, unspecified; Z88.5 Allergy status to narcotic agent; Z79.51 Long term (current) use of inhaled steroids; Z79.82 Long term (current) use of aspirin; Z79.02 Long term (current) use of antithrombotics/antiplatelets; Z79.899 Other long term (current) drug therapy; B96.89 Other specified bacterial agents as the cause of diseases classified elsewhere; E88.09 Other disorders of plasma-protein metabolism, not elsewhere classified; E11.51 Type 2 diabetes mellitus with diabetic peripheral angiopathy without gangrene; E11.22 Type 2 diabetes mellitus with diabetic chronic kidney disease; W19.XXXA Unspecified fall, initial encounter; Y92.099 Unspecified place in other non-institutional residence as the place of occurrence of the external cause; L30.9 Dermatitis, unspecified; S10.91XA Abrasion of unspecified part of neck, initial encounter; X58.XXXA Exposure to other specified factors, initial encounter; Y92.9 Unspecified place or not applicable; Z86.73 Personal history of transient ischemic attack (TIA), and cerebral infarction without residual deficits
CPT/HCPCS: 36415; 70450-TC; 71045-TC; 80048-TC; 80061-TC; 80076-TC; 81001; 82962-TC; 83735-TC; 84100-TC; 84484-TC; 85025-TC; 85730-TC; 87081-TC; 87086-TC; 97112-TC; 97116-TC; 97530-TC; A4223; A6253; C9803; G0378; G0480; J0696; J1650; J1953; J7030; J7060